=== PATIENT | female | born 1985 | race Caucasian/White ===

== ENCOUNTER 2022-03-20 10:19 | Observation (INO) | payer OTHER, MEDICAID, SELFPAY ==
--- NOTE | 2022-03-20 14:10 | P.TNLD_ITS ---
Visit Information Visit Information Date of evaluation: 03/20/22 On-call OB Provider: Amna Cota Reason for Evaluation: Yes non-stress test and Yes other Comments/Additional reasons for admission: 42 0/7 weeks, transfer of care from banquet food server (had home planned Vital Signs Vital Signs: AF/VSS (per OBIX) PFSH Family History (Updated 05/11/17 @ 00:00 by Conversion Provider) Father Age: 77 Hypertension High cholesterol Grandfather Heart disease Mother Age: 75 Hypertension High cholesterol Mental health problem Exam Const General: cooperative and healthy appearing Nutritional Appearance: overweight Orientation: oriented x3 Eyes General: appearance normal, both eyes and all related structures Chest Chest: normal inspection of the chest Resp Effort & Inspection: normal respiratory effort Cardio Rate: regular rate Rhythm: regular rhythm Manual OB Exam: dilated 1 and effaced (by referrring banquet food server - per patient) 75% Presentation: vertex Estimated Weight (lbs): 7 Amniotic Fluid: no fluid Diagnosis, Plan/Disposition Final Diagnosis (1) Post-dates : Status: Acute Problem details: Primip at 42 wks, GBS+, RH negative / refused rhogam, NST reactive Plan/Disposition Plan: Return at 1800 for induction - sooner if bleeding, LOF, decreased movement OB Disposition: home (staying at [facility]B in [place])
== END 2022-03-20 11:30 | disposition home or self-care (01) ==
LOC: LABOR 10:24
PROVIDERS: Admitting Provider Obstetrics & Gynecology; Referring Provider Obstetrics & Gynecology; Visit Provider Obstetrics & Gynecology
DX: O48.0 Post-term pregnancy (principal); Z3A.42 42 weeks gestation of pregnancy
CPT/HCPCS: 59025; G0378; G0379

== ENCOUNTER 2022-03-20 17:39 | Inpatient (IN) | payer OTHER, MEDICAID, SELFPAY ==
--- NOTE | 2022-03-20 18:42 | PM.OBHP.IH.1 ---
OB HPI Date/Time Date of admission: 03/20/22 Date Patient Seen: 03/20/22 Time Patient Seen: 18:42 History of Present Condition Chief complaint: Estimated Gestational Age (weeks): 40 0/7 : 1 Narrative: Dating US not done but LMP dating c/w 20 week US care: good care (refused rhogam) Dating criteria OB: LMP confirmed by 2nd trimester US Ultrasounds: normal mid trimester US Obstetrical complications: none Medical complications OB: none Narrative: Under care of superintendent division who transfered care to hi today given gestational age. Last checked yesterday /-3 per notes Indications Indication for induction OB: post dates Preadmission Labs Last OB Lab Results: No Data to Display -: Chlamydia screen: negative and Gonorrhea screen: negative -: PAP smear: Normal Genetic Screens: Quad screen: Normal External Labs Blood type OB HPI: 0 (-) negative -: Antibody screen: negative, HBsAG: negative, Chlamydia screen: negative, Gonorrhea screen: negative and GBS status: positive Evaluation Evaluation Baseline heart rate: 150 Uterine Contraction Intensity: Mild Status: Category l Dilation (cm): 0 Effacement (%): 80 Dilation: Closed Effacement: >/=80% station: -2 Position of cervix: posterior Consistency: soft He score: 6 PFSH Family History Father Age: 77 Hypertension High cholesterol Grandfather Heart disease Mother Age: 75 Hypertension High cholesterol Mental health problem Meds Home Medications and Allergies Home Medications Medication Instructions Recorded Confirmed Type cephalexin 500 mg capsule 1,000 mg PO SEE INSTRUCTIONS #40 05/10/16 Rx caps mupirocin 2 % topical ointment 1 abel topical BID ##22 05/10/16 Rx Allergies Allergy/AdvReac Type Severity Reaction Status Date / Time cat dander [CAT DANDER] Allergy Intermediate ITCHY Unverified 11/22/17 12:38 EYES, WHEEZING, SNEEZING Review of Systems Review of Systems ROS: Yes All systems reviewed with the patient and are negative except as otherwise documented OB Exam Narrative Exam Narrative: AF / VSS HENMT Head: normal to inspection Eyes General: appearance normal, both eyes and all related structures Resp Effort & Inspection: normal respiratory effort Cardio Rate: regular rate Rhythm: regular rhythm Presentation: vertex (by bedside ultrasound) Estimated Weight (lbs): 8 Assessment and Plan Assessment and Plan Assessment and Plan narrative: Primip, post-dates Transfer of care from superintendent division Desires natural childbirth / hypnobirthing / surges Declines rhogam; wants to have GBS prophylaxis only is prolonged rupture or other clinical indication Has requested pronouns they / them Tracing reassuring Begin with cervidil
[2022-03-20 19:31] LABS: Add Manual Diff / Slide Review NO; Basophils Absolute Auto 100 /uL (0-100); Basophils Percent Auto 0.7 % (0-2); Eosinophils Absolute Auto 100 /uL (0-450); Eosinophils Percent Auto 0.9 % (2-4); Hematocrit 37.9 % (36-46); Hemoglobin 13.1 g/dL (12.0-16.0); Lymphocytes Absolute Auto 1700 /uL (1100-4500); Lymphocytes Percent Auto 17.8 % (25-40); Mean Corpuscular HGB Conc 34.7 % (30-36); Mean Corpuscular Hemoglobin 30.2 PG (26-34); Mean Corpuscular Volume 87.1 fL (80-100); Monocytes Absolute Auto 800 /uL (0-900); Monocytes Percent Auto 8.8 % (3-14); Neutrophils Absolute Auto 6800 /uL (1500-7000); Neutrophils Percent Auto 71.8 % (50-75); Platelet Count 207 X10^3/uL (150-400); Red Blood Cell Count 4.35 X10^6/uL (4.0-5.2); Red Cell Distribution Width 13.9 % (11.6-14.8); White Blood Cell Count 9.4 X10^3/uL (4.5-11.0)
[2022-03-20 19:36] LABS: COVID19 -Nasal RAPID Negative (Negative)
[2022-03-20] MEDS: DINOPROSTONE VAG (CERVIDIL) 10 MG VAG (19:54)
--- NOTE | 2022-03-21 00:26 | PM.OBPNLAB ---
Date/Time Date Patient Seen: 03/21/22 Time Patient Seen: 00:26 (pt asleep) Pain Control Pain control: tolerating well Pelvic Exam Effacement (%): 80 station: -2 Comments: deferred - cervidil in place Contractions Contractions on admission: irregular Monitor mode: External Contraction pattern: Absent Status status: Category l Assessment and Plan Assessment: induction ongoing Plan: continuous present management Comments: Primip at 42 1/7 wk Sleeping with cervidil in place Covid negative GBS + Tracing reassuring
--- NOTE | 2022-03-21 06:09 | PM.OBPNLAB ---
Date/Time Date Patient Seen: 03/21/22 Time Patient Seen: 06:10 Pain Control Pain control: tolerating well (sleeping ) Comments: cervidil in place Pelvic Exam Effacement (%): 80 Comments: exam deferred Contractions Contractions on admission: irregular Monitor mode: External Contraction pattern: Absent Contraction intensity: Mild Status status: Category l Assessment and Plan Assessment: induction ongoing Comments: Primip 42 1/7 wk AMA Uses pronouns they / them - goes by MAXINE Cali in place until about 8 am Tracing (intermittent) reassuring +GBS / declining abx without additional indication over prophylaxis RH negative - declined rhogam Desires unmedicated - and specific language like surges' Covid negative Anticipate
--- NOTE | 2022-03-21 09:00 | PM.OBPNLAB ---
Date/Time Date Patient Seen: 03/21/22 Time Patient Seen: 09:00 Pain Control Pain control: other (not in labor, cervical ripening) Comments: 36 yo G1 transferred care to doctor information assurance yesterday pm due to now being 42weeks in needing induction for postdates. Her ESTEPHANIE is by LMP and consistent with a 20 week ultrasound. She received Cervidil overnight which was just removed at 0800. She does not feel any contractions. No LOF. Pelvic Exam Dilation (cm): 0 Effacement (%): 0 station: -3 Amniotic membrane status: Intact Contractions Monitor mode: None Contraction frequency (min): 9 Contraction pattern: Irregular Contraction intensity: Mild (pt unaware) Status status: Category l Heart Rate Baseline: 130 Monitor Accelerations: Present Monitor Decelerations: Absent Monitor Variability: Moderate Comments: Off EFM since 729 Assessment and Plan Assessment: induction ongoing Comments: 42 weeks 1d EGA, IOL for postdates, GBS+ I recommend continued cervical ripening due to the unfavorable cervix. Discuss could give a trial of Pitocin but more responsive if cervix becomes more favorable, and since she had desired home with home online merchandiser. Discussed misoprostol. Her clay mixer/boat pilot had questions regarding safety of misoprostil and questions answered. Discussed with them options could include be repeat Cervidil For cervical ripening verses the misoprostol versus trial of the Pitocin. Will let them discuss among themselves and let me know what they decide. A call was placed this am to Natasha Choudhary CNM to see if she was interested in assuming pt care with back-up, since the pt had desired a online merchandiser for delivery, await her call back.
--- NOTE | 2022-03-21 11:52 | P.PNOB_ITS ---
Date/Time Date Patient Seen: 03/21/22 Time Patient Seen: 11:30 Pain Control Pain control: tolerating well Comments: 36YO @ [id number] by LMP. Transferred into hospital last night for IOL for post dates. Had cevical ripening with Cervadil overnight, under the care of . Cervadil was removed this morning at 0800 with no cervical change noted. After meeting this morning with , pt requested to transfer care to [facility] who is now assuming care. Pt is open to a Alexis balloon placement. Desires low intervention and is struggling emotionally with transfer to hospital, away from planned home . They/them gender pronouns. Accompanied by partner and chief of field operations. Chart and preferences reviewed. R declined, partner's Rh sttus unknown, signed declination form included in medical records. GBS positive, declining prohylaxis unless ROM for significant length of time. Pelvic Exam Dilation (cm): 0 station: -2 Comments: Alexis balloon placed with sterile speculum and inflated with 60mL NS. Contractions Monitor mode: External Contraction pattern: Absent Contraction intensity: Mild Status status: Category l Heart Rate Baseline: 145 Comments: Has been off continuous monitoring since 0800. Hourly FHTs reassuring by intermmittent auscultation Assessment and Plan Assessment: induction ongoing Plan: continuous present management Comments: Encourage balanced rest and activity. Q1hr FHTs by IA. Reassess in 6 hours or sooner, PRN.
--- NOTE | 2022-03-21 17:41 | PM.OBPNLAB ---
Date/Time Date Patient Seen: 03/21/22 Time Patient Seen: 17:43 Pain Control Comments: Evaluation of pt six hours following irving balloon placement. Pt reports mild sensation of contractions, no other changes and catheter still feels tightly in place. Coping well currently with newspaper photographer and partner at bedside. VS: BP 134/85, HR 85 BPM, T 36.0 C Pelvic Exam Dilation (cm): 2 Effacement (%): 100 station: -3 Comments: Irving balloon remains in place. Unable to adequately determine effacement though cervix feels very thin in front of balloon. Contractions Monitor mode: None Pitocin rate (mU/min): 0 Contraction intensity: Mild Status status: Category l Heart Rate Baseline: 150 Comments: Reassuring by intermittent auscultation. Assessment and Plan Assessment: induction ongoing Plan: continuous present management Comments: Continue induction of labor with irving balloon. Reassess in six hours or sooner/when irving falls out.
[2022-03-21 23:32] VITALS: BP 147/88
--- NOTE | 2022-03-22 00:06 | PM.OBPNLAB ---
Date/Time Date Patient Seen: 03/22/22 Time Patient Seen: 00:07 Pain Control Pain control: tolerating well Comments: Has been able to rest. Springs some stronger surges a few hours ago, but they have since eased. Is now open to pitocin augmentation to help balloon out. Coping well with automatic pad making machine operator and partner at bedside. VS: BP 111/59mmHg, HR 93bpm, RR 16/min, T 36.6C Temporal Pelvic Exam Dilation (cm): 3 Effacement (%): 100 station: -3 Amniotic membrane status: Intact Comments: Alexis balloon remains in place with slow, but steady progress Contractions Monitor mode: None Pitocin rate (mU/min): 0 Contraction pattern: Irregular Contraction intensity: Mild Status status: Category l Heart Rate Baseline: 145 Comments: reassuring by intermittent auscultation Assessment and Plan Assessment: induction ongoing Plan: begin patient augmentation (low dose pitocin (max dose 6mu/min) until balloon is out) Comments: Reassess in 4-6 hours or sooner, PRN.
[2022-03-22] MEDS: LACTATED RINGERS 1,000 ML 100 ML IV (00:35)
[2022-03-22] MEDS: OXYTOCIN PREMIX 30 UNIT/500 ML PLAST..BAG IV (00:36)
--- NOTE | 2022-03-22 08:08 | PM.OBPNLAB ---
Date/Time Date Patient Seen: 03/22/22 Time Patient Seen: 08:08 Pain Control Pain control: tolerating well Comments: Patient continued to feel intermittent, mild cramping overnight. Alexis balloon was deflated and removed by RN at 1800 (18 hours from placement). Pitocin was turned of at 0700 (max dose 6mu/min) d/t medical staff services coordinator shortage. VS: BP 129/75mmHg, HR 97bpm, T 36.6C Temporal Pelvic Exam Dilation (cm): 4 Effacement (%): 70 station: -3 Amniotic membrane status: Intact Comments: He- 7 Contractions Monitor mode: None Pitocin rate (mU/min): 0 Contraction frequency (min): 9 Contraction pattern: Irregular Contraction intensity: Mild (pt unaware) Status status: Category l Heart Rate Baseline: 135 Monitor Accelerations: Present Monitor Decelerations: Absent Monitor Variability: Moderate Assessment and Plan Assessment: induction ongoing Plan: other Comments: Recommend single dose or misoprostol for continued cervical ripening while awaiting 1:1 RN to restart pitocin. Pt currently declines and wants to talk it over with her partner first. Will await her response and then reassess at 11am.
--- NOTE | 2022-03-22 15:08 | PM.OBPNLAB ---
Date/Time Date Patient Seen: 03/22/22 Time Patient Seen: 15:00 Pain Control Pain control: tolerating well Comments: Patient declined oral misoprostol this morning while awaiting 1:1 RN care required for pitocin. Once 1:1 RN was assigned and present at 11am, patient declined to start pitocin until 1pm. Has been alternating resting, ambulating and tolerating a general diet. Currently comfortable with pitocin running and continuous EFM in place. Partner and collar turner operator remain present and supportive. VS: BP 118/78mmHg, HR 101bpm, T 36.2C Temporal Pelvic Exam Dilation (cm): 4 Effacement (%): 70 station: -3 Amniotic membrane status: Intact Comments: CE deferred since there has been litttle intervention since last exam at 0800. Contractions Monitor mode: None Pitocin rate (mU/min): 8 Contraction frequency (min): 94 Contraction duration (min): 1 Contraction intensity: Mild (pt unaware) Status status: Category l Heart Rate Baseline: 140 Monitor Accelerations: Present Monitor Decelerations: Absent Assessment and Plan Assessment: induction ongoing Plan: continuous present management Comments: Continue pitocin augmentation to adequate contraction pattern. Reassess Q 4-6 hours. Repeat CE after 2 hours of moderate to strong contractions. Labor support PRN. Will send cord blood after and weight loss counselor on Rhogam accordingly.
--- NOTE | 2022-03-22 20:53 | PM.OBPNLAB ---
Date/Time Date Patient Seen: 03/22/22 Time Patient Seen: 20:30 Pain Control Pain control: tolerating well Comments: Sitting up on the CUB, feeling similar intensity with contractions that she was feeling with the Alexis balloon in. Pelvic Exam Effacement (%): 70 station: -3 Amniotic membrane status: Intact Comments: CE deferred until after 2 hours of moderate to strong contractions Contractions Monitor mode: None Pitocin rate (mU/min): 18 Contraction frequency (min): 3 Contraction duration (min): 1 Contraction pattern: Regular Contraction intensity: Mild Status status: Category l Heart Rate Baseline: 150 Monitor Accelerations: Present Monitor Decelerations: Absent Monitor Variability: Moderate Assessment and Plan Assessment: induction ongoing Plan: continuous present management Comments: Continue pitocin titration to adequate contraction pattern. Labor support PRN. Reassess in 4-6 hours or sooner, PRN.
[2022-03-23] MEDS: LACTATED RINGERS 1,000 ML 100 ML IV (02:10)
--- NOTE | 2022-03-23 06:15 | PM.OBPNLAB ---
Date/Time Date Patient Seen: 03/23/22 Time Patient Seen: 02:30 Pain Control Pain control: tolerating well Comments: breathing through regular contractions x 2 hours. Coping well with partner and audit senior associate at bedside. Pelvic Exam Dilation (cm): 5 Effacement (%): 90 station: -2 Amniotic membrane status: Intact Contractions Contractions on admission: none Monitor mode: External Pitocin rate (mU/min): 16 Contraction frequency (min): 2 Contraction duration (min): 1 Contraction pattern: Regular Contraction intensity: Moderate Status status: Category ll Heart Rate Baseline: 135 Monitor Accelerations: Present Monitor Decelerations: Variable Monitor Variability: Moderate Assessment and Plan Assessment: induction ongoing Plan: continuous present management Comments: Encourage freedom of movement. Continue pitocin titration to adequate contraction pattern. Reassess in 4-6 hours.
--- NOTE | 2022-03-23 06:21 | PM.OBPNLAB ---
Date/Time Date Patient Seen: 03/23/22 Time Patient Seen: 06:21 Pain Control Pain control: tolerating well Comments: Has been changing positions frequently and breathing through contractions for about 6 hours. Removed band for EFM around 3am and has declined continuous EFM since. RN has performed intermitent auscultation Q 15minutes with reassuring FHTs during this time. VS: BP 122/73mmHg, HR 83bpm, T 36.3C Temporal Pelvic Exam Dilation (cm): 5 Effacement (%): 90 station: -2 Amniotic membrane status: Intact Comments: CE unchanged x 4 hours Contractions Monitor mode: External Pitocin rate (mU/min): 18 Contraction frequency (min): 2 Contraction duration (min): 1 Contraction pattern: Regular Contraction intensity: Moderate Status status: Category ll Heart Rate Baseline: 145 Comments: Reassuring by IA x 4 hours, per RN. Counseled on strong recommendation for continuous heart rate monitoring in the context of pitocin induction. Pt agrees to try the Radha EFM again. Assessment and Plan Assessment: induction ongoing Plan: continuous present management Comments: Encouraged RN to continue pitocin increases as contraction pattern allows. Given patient's declining of GBS prophylaxis, I do not recommend AROM to augment labor. Reassess in 4 hours or sooner, PRN.
--- NOTE | 2022-03-23 07:56 | P.PNOB_ITS ---
Date/Time Date Patient Seen: 03/23/22 Time Patient Seen: 07:30 Pain Control Pain control: tolerating well Pelvic Exam Effacement (%): 90 station: -2 Amniotic membrane status: Intact Contractions Monitor mode: External Pitocin rate (mU/min): 0 Contraction frequency (min): 2 Contraction pattern: Regular Contraction intensity: Moderate Status status: Category ll Heart Rate Baseline: 135 Monitor Accelerations: Absent Monitor Decelerations: Early, Late and Variable Monitor Variability: Minimal Assessment and Plan Assessment: other Plan: Comments: Counseled patient on Cat II FHR with minimal variability and recurrent decelerations, remote from with recommendation for primary for intolerance of labor. Patient, senior electrical estimator and partner discussed this recommendation and agreed to primary , charge account identification clerk and OR notified. Pitocin was turned off during discussion. Pre-op antibiotics ordered. agreed to assistant housekeeping manager. Reviewed preferences and patient agreed to pass on vaginal seeding in context of GBS positive. Patient is also okay with her staying with her partner while she is in the PACU.
--- NOTE | 2022-03-23 08:35 | P.PNOB_ITS ---
Date/Time Date Patient Seen: 03/23/22 Time Patient Seen: 08:10 Assessment and Plan Comments: 36yo at 42w3d here for post-dates IOL. Pt has progressed to 5cm, however due to nonreassuring FHT with recurrent variable decels and minimal variability when on pitocin which has been needed for labor progression, the decision was made to proceed with primary . Discussed with the pt the risks of c- section including but not limited to bleeding/hemorrhage, infection, injury to other organs such as the bowel and bladder, and injury to the fetus. The pt is okay with blood transfusion if medically necessary. The pt consented to the procedure and consent was signed and placed in the chart. She will receive 2g Ancef and 500mg Azithromycin prior to surgery. SCDs are in place.
--- NOTE | 2022-03-23 08:44 | PM.PREOP ---
Pre-operative Note COVID-19 COVID-19 status: Negative Result date/Date tested (Pos, Neg/Pending): 03/20/22 Interval Note History & Physical reviewed/Exam performed by Physician: Yes Changes to H&P: No
[2022-03-23] MEDS: CEFAZOLIN 2 GM IN 0.9 % NACL 100 ML IV (09:05)
[2022-03-23] MEDS: AZITHROMYCIN 500 MG in DEXTROSE 5% IN WATER 250 ML 250 MG IV (09:05)
--- NOTE | 2022-03-23 09:22 | SUR.OPER ---
Supine on padded OR bed, head on pillow, arms secured on padded arm boards at <90 degrees abduction, legs uncrossed, safety belt at thigh, tape over blanket over lower legs.
[2022-03-23 10:22] VITALS: BP 124/79; PULSE 82; RESP 15; TEMP 35.9; O2SAT 98
[2022-03-23 10:27] VITALS: BP 124/79; PULSE 72; RESP 19; O2SAT 98
--- NOTE | 2022-03-23 10:28 | SUR.OPER ---
Placenta, blood, dad and baby with OB RN. OB RN to get mom to sign tissue release form for placenta.
[2022-03-23 10:31] VITALS: BP 123/82; PULSE 89; RESP 12; O2SAT 100
--- NOTE | 2022-03-23 10:31 | P.OP_ITS ---
Operative Date/Time/Diagnoses Date of procedure: 03/23/22 Time of procedure: 09:15 Pre-op diagnosis: 42w3d gestation GBS positive Rh negative Nonreassuring heart tones Post-op diagnosis: other (Meconium-stained amniotic fluid) Procedure & Clinicians Procedure: Primary Same procedure as scheduled: Yes Indications: Nonreassuring heart tones Surgeon: Laura Bonner Construction Coordinator: Francisco Banda Anesthesia Type: Spinal Operative Notes Findings: Normal ovaries and tubes. Uterus with multiple subserosal fibroids. Closure Type: primary Specimen(s): cord blood Applied: Catheter Estimated Blood Loss (mL): 700 Blood products transfused: none Procedure in detail: FINDINGS: Normal uterus, ovaries, and tubes OPERATIVE COURSE: The patient was taken to the operating room where spinal anesthesia was placed. She was then prepared and draped in the normal sterile fashion in the dorsal supine position with a leftward tilt. Anesthesia was tested and found to be adequate. A Pfannensteil skin incision was then made with the scalpel and carried through to the underlying layer of fascia with the scalpel. The fascia was incised in the midline and the incision extended laterally with the Gates scissors. The superior aspect of the fascial incision was then grasped with Neha clamps, elevated with the help of the neurosurgical nurse practitioner, and the underlying rectus muscles dissected off bluntly and sharply where needed. Attention was then turned to the inferior aspect of the incision which, in a similar fashion, was grasped, tented up with Neha clamps, and the rectus muscle dissected off bluntly and sharply with Gates scissors. The rectus muscles were then in the midline, and the peritoneum was identified and entered bluntly. The peritoneal incision was then extended with good visualization of the bladder. Retraction was provided by the neurosurgical nurse practitioner. The bladder blade was then inserted and the vesicouterine peritoneum identified, grasped with pick-ups and entered sharply with the Metzenbaum scissors. The incision was then extended laterally and the bladder flap created digitally. The bladder blade was then reinserted and the lower uterine segment incised in a transverse fashion with the scalpel, with the neurosurgical nurse practitioner providing suction. The uterine incision was then extended superolaterally by pulling superolaterally on both sides. Membranes were ruptured and fluid was meconium- stained. The bladder blade was removed the infant's head was flexed out of LOP position and delivered atraumatically, with fundal pressure by the neurosurgical nurse practitioner. The baby cried spontaneously immediately after delivery. The nose and mouth were suctioned with bulb suction and the cord was clamped and cut after 1 minute. The was handed off to the waiting nursing staff. Cord blood was collected for Rh status. The placenta was then delivered with gentle cord traction. The uterus was then exteriorized and cleared of all clots and debris. The uterine incision was r epaired with 1-Chromic in a running, locked fashion. A second layer of the same suture was used to obtain excellent hemostasis. The gutters were cleared of all clots. The uterus was returned to the abdomen. Hysterotomy was investigated and found to be hemostatic. The bladder flap was repaired with 2-O Vicryl. The peritoneum was closed with 2-O Vicryl. The fascia was reapproximated with 1-O Vicryl in a running fashion. The subcutaneous tissue was reapproximated with 2-O Plain gut. The skin was closed with 4-O Monocryl. The neurosurgical nurse practitioner helped with retraction and suture management during closures. SPONGE AND NEEDLE COUNTS: Correct x3. DRESSING: Aquacel ANTICOAGULATION: SCDs applied prior to Surgery Preop antibiotics given (see MAR). The patient was taken to recovery room having tolerated procedure well. Complications: none [place] Baby 1: Infant Gender: Female Presentation: vertex Position: Left Occiput Posterior Placental Delivery Description: Spontaneous Cord Vessel Description: 3 Vessels score (1 min): 8 score (5 min): 9 weight: 9 lb 14.874 oz Post-operative Condition: stable Disposition: PACU Aftercare: routine postop
[2022-03-23 10:37] VITALS: BP 125/77; PULSE 73; RESP 16; TEMP 36.1; O2SAT 99
--- NOTE | 2022-03-23 11:02 | SUR.PHASEI ---
a and p technician here updating patient at this time.
[2022-03-23 11:05] VITALS: BP 119/75; PULSE 75; RESP 18; O2SAT 97
--- NOTE | 2022-03-23 11:22 | SUR.PHASEI ---
Pt transferred to room 4 in bed. Pt alert oriented. SBAR report given to Joann Rn at bedside with Fundal check and VS. Father and pipe joints supervisor at bedside.
[2022-03-23] MEDS: diphenhydrAMINE 50 MG/ML VIAL 25 MG IV (21:09)
[2022-03-23] MEDS: LANOLIN OINT 7 GM 1 APPLIC TOP (21:09)
[2022-03-23] MEDS: IBUPROFEN 600 MG TABLET PO (21:10)
--- NOTE | 2022-03-24 07:53 | PM.OBPN.1 ---
Subjective - OB Subjective Date Patient Seen: 03/24/22 Time Patient Seen: 06:30 Interval history: The pt is doing well this morning. She reports her pain is well controlled. Her lochia is decreasing appopriately. She is with good latch and no nipple pain. Her irving was removed and she has ambulated and voided without difficulty. She has not yet passed flatus. She has no concerns. Exam Vital Signs (past 8 hours): Oxygen Delivery Method Room Air Narrative Exam Narrative: Gen: NAD, sitting comfortably in bed, appears well CV: RRR, no murmurs Resp: clear to auscultation bilaterally Abd: soft, appropriately tender, normoactive bowel sounds, nondistended, fundus firm and below the umbilicus, dressing d/i with minimal spotting Ext: trace edema Objective Labs Result Diagrams: 03/24/22 06:42 Assessment & Plan Plan Comments: 36yo POD#1 s/p primary for nonreassuring heart tones. Pt doing well. No concerns at this time. - Routine postop/ care - Encouraged ambulation - support - Rhogam to be administered for Rh status Time Spent With Patient Time: Total time spent is greater than 50% in coordination of care (as documented) at patient's floor/unit and/or counseling patient: Time with patient: less than 15 minutes
[2022-03-24] MEDS: IBUPROFEN 600 MG TABLET PO ×3 (08:06→21:46)
[2022-03-24 08:08] LABS: Add Manual Diff / Slide Review NO; Basophils Absolute Auto 0 /uL (0-100); Basophils Percent Auto 0.2 % (0-2); Eosinophils Absolute Auto 100 /uL (0-450); Eosinophils Percent Auto 0.7 % (2-4); Hematocrit 32.2 % (36-46); Hemoglobin 11.3 g/dL (12.0-16.0); Lymphocytes Absolute Auto 1300 /uL (1100-4500); Mean Corpuscular HGB Conc 35.1 % (30-36); Mean Corpuscular Hemoglobin 30.4 PG (26-34); Mean Corpuscular Volume 86.4 fL (80-100); Monocytes Absolute Auto 700 /uL (0-900); Monocytes Percent Auto 7.5 % (3-14); Neutrophils Absolute Auto 7200 /uL (1500-7000); Neutrophils Percent Auto 77.6 % (50-75); Platelet Count 169 X10^3/uL (150-400); Red Blood Cell Count 3.72 X10^6/uL (4.0-5.2); White Blood Cell Count 9.2 X10^3/uL (4.5-11.0)
[2022-03-25] MEDS: IBUPROFEN 600 MG TABLET PO ×2 (03:55→10:11)
--- NOTE | 2022-03-25 09:18 | PM.OBDS.1 ---
Discharge Providers Provider Date of admission: 03/20/22 17:39 Discharge Date: 03/25/22 Primary care physician: MILLER Dickson Consults: 03/23/22 10:56 Consult to Make Up Girl Routine Comment: Discharge provider: Laura Bonner MD Summary Hospital Course Date Patient Seen: 03/25/22 Time Patient Seen: 08:15 Diagnoses: 42w3d gestation GBS positive Rh negative Nonreassuring heart tones Meconium-stained amniotic fluid Hospital Course: The pt presented for post-dates IOL. She received cervidil followed by irving catheter placement. Low dose pitocin was then initiated with the catheter in place. The irving was then removed, and pitocin stopped due to staffing. Pitocin was then initiated with the pt at 4cm. The pt was GBS positive and declined prophylaxis, so AROM was not performed. The pt then had recurrent variable decels with minimal variability, that did not respond to position changes. Due to being remote from delivery, the decision was made to proceed with primary . The surgery was without complications, and the pt delivered a viable baby girl on 03/23/22. The pt tolerated surgery well. , there were no complications. At the time of discharge she was voiding, ambulating, and passing flatus without difficulty. Her lochia was decreasing appropriately. She was with good latch. Her pain was well controlled. She will f/u in 1 week for incision check. Peripartum Data Infant Delivery Method: Section Procedures: Primary complications: none [place] 1: Gender: Female Disposition of : home Discharge Diagnosis (1) Post-dates : Status: Acute Problem Details: Primip at 42 wks, GBS+, RH negative / refused rhogam, NST reactive (2) S/P : Status: Acute Time Spent with Patient Time attestation: Total time spent providing and/or coordinating discharge services: Objective Labs Result Diagrams: 03/24/22 06:42 Exam Vital Signs (past 8 hours): Oxygen Delivery Method Room Air Narrative Exam Narrative: Gen:? NAD, sitting comfortably in bed, appears well CV:? RRR, no murmurs Resp:? clear to auscultation bilaterally Abd:? soft, appropriately tender, normoactive bowel sounds, nondistended, fundus firm and below the umbilicus, dressing d/i with minimal spotting Ext:? trace edema Discharge Plan Discharge Plan Patient Disposition: Home Discharge orders & Medications Prescriptions: New acetaminophen 325 mg Tablet 650 mg PO Q6H PRN (Reason: Fever/Mild Pain (1-3)) Qty: 30 0RF docusate sodium 100 mg Capsule 200 mg PO DAILY Qty: 30 0RF ibuprofen 600 mg Tablet 600 mg PO Q6H PRN (Reason: Fever/Mild Pain (1-3)) Qty: 30 0RF oxycodone 5 mg Tablet 5 mg PO Q4H PRN (Reason: Pain, Moderate (4-6)) Qty: 15 0RF Follow up/Referrals: Yanet Dickinson ARNP [Primary Care Provider] - Laura Bonner MD [Physician] - 03/30/22 10:15 am (Please follow up with Dr. Bonner on mondayMarch 30 @1015PM) Diet/Activity/Treatments Diet: Diet as Tolerated and Regular Skin/Wound/Dressing Care Report to your healthcare provider any signs of infection, such as:: chills, fever, increased pain and unusual drainage Visit Report/Discharge Packet Instructions: DI for Stand Alone Forms: Discharge: Care Visit Report Forms: Patient Portal/API, Stroke Signs & Symptoms Discharge Data Primary Care Provider: Yanet Dickinson Discharges patient from system. Discharge Date/Time: 03/25/22 11:45
[2022-03-25 10:04] VITALS: BP 124/68; PULSE 75; RESP 16; TEMP 36.6
[2022-03-25] MEDS: RHO(D) IMMUNE GLOBULIN 1,500 UNIT SYRINGE 1500 UNIT IM (11:14)
== END 2022-03-25 11:45 | disposition home or self-care (01) | DRG 540 ==
PROVIDERS: Obstetrics & Gynecology; Admitting Provider Family Medicine; PCP Nurse Practitioner Family; Referring Provider Obstetrics & Gynecology; Visit Provider Family Medicine
PROC: (CPT 59514; principal; 2022-03-23 08:45)
DX: O48.0 Post-term pregnancy (principal); O76 Abnormality in fetal heart rate and rhythm complicating labor and delivery; O99.824 Streptococcus B carrier state complicating childbirth; Z3A.49 Greater than 42 weeks gestation of pregnancy; Z37.0 Single live birth; O77.0 Labor and delivery complicated by meconium in amniotic fluid; O99.891 Other specified diseases and conditions complicating pregnancy; D25.2 Subserosal leiomyoma of uterus; Z20.822 Contact with and (suspected) exposure to COVID-19
CPT/HCPCS: 36415; 59025; 59050; 59200; 59514; 85025; 86850; 86900; 86901; 87635; 99238; C9803; G0378; G0379; J0690; J1200; J1885; J2274; J2405; J2590; J2790